=== PATIENT | female | born 1955 ===

== ENCOUNTER 2019-05-23 09:15 | Inpatient (IN) | payer OTHER ==
[~2019-05-23] VITALS: Ht 152.4 cm; Wt 82.6 kg
[2019-05-23] MEDS ORDERED: TOPROL XL100 M1 PO (11:08)
== END 2019-06-14 16:22 | disposition home or self-care (01) | DRG 330 ==
LOC: O/R 09:15 → SURH 06-02 09:15 → O/R 06-09 09:54 → SURH 06-09 09:54
PROVIDERS: ADMIT Colon & Rectal Surgery
PROC: 0DQB4ZZ Repair Ileum, Percutaneous Endoscopic Approach (ICD-10-PCS; principal; 2019-06-09 07:00)
DX: Z43.2 Encounter for attention to ileostomy (principal); C20 Malignant neoplasm of rectum; I10 Essential (primary) hypertension; E87.6 Hypokalemia